=== PATIENT | female | born 1995 | race Caucasian/White ===

== ENCOUNTER → 2020-08-10 | Outpatient (CLI) | payer OTHER | LOC: KOH-I 11:19 | DX: M54.5 Low back pain (principal); R05 Cough; M25.571 Pain in right ankle and joints of right foot | CPT/HCPCS: 71046; 72040; 72070; 72100; 73610; 73630 ==

== ENCOUNTER 2020-11-20 21:41 | Emergency (ER) | payer OTHER ==
[2020-11-20 22:24] LABS: HEMOGLOBIN 13.3 gm/dl (12.3-15.3); RED BLOOD COUNT 4.45 M/UL (4.00-5.10); WHITE BLOOD COUNT 9.8 K/UL (4.5-11.0)
[2020-11-20 22:48] LABS: BUN/CREATININE RATIO 11 (0-10)
[2020-11-21] MEDS ORDERED: KEFLEX750 MG PO (00:29)
== END 2020-11-21 00:38 | disposition home or self-care (01) ==
LOC: ER1 21:41
PROVIDERS: Emergency Medicine
DX: S01.01XA Laceration without foreign body of scalp, initial encounter (principal); S30.811A Abrasion of abdominal wall, initial encounter; Z23 Encounter for immunization; Y08.89XA Assault by other specified means, initial encounter
CPT/HCPCS: 12002; 70450; 80053; 80307; 81001; 83605; 85025; 85610; 85730; 86850; 86900; 86901; 90471; 90715; 99284; G0480; J2405; Q9967